=== PATIENT | male | born 1955 | race Caucasian/White ===

== ENCOUNTER 2017-08-04 00:58 | Observation (INO) | payer BC, MEDICARE, OTHER ==
[2017-08-04] VITALS (14 sets, daily range): BP systolic 109–130; BP diastolic 61–91
[~2017-08-04] VITALS: Ht 170.2 cm; Wt 77.1 kg
[~2017-08-04 00:58] MED LIST: ASPI-1471 PO; BIMA2.5D5 OP; ESOM40CA42 PO; LACT1CAP4 PO; LISI5TAB25 PO; LUTE20CA11 PO; METF-420 PO; OXYC20TA99 PO; OXYC5TAB38 PO; TUMERIC PO; VENL25TA3 PO; VENL75TA12 FT
[2017-08-04] MEDS ORDERED: MIDAZOLAM 2 MG/2 ML VIAL IVP PRN (06:00)
[2017-08-04] MEDS ORDERED: NORMOSOL R SOLN(*) 1000 ML BAG 1,000 ML IV PRN (06:00)
[2017-08-04] MEDS ORDERED: LIDOCAINE/SOD BICARB 8.4% SYR ID ONE (06:00)
[2017-08-04] MEDS ORDERED: ceFAZolin(*) 2GM/D5W 50ML 50 ML IVPB ONE (06:00)
[2017-08-04] MEDS ORDERED: DEXAMETHASONE SOD 4 MG/ML VIAL ONE (10:17)
[2017-08-04] MEDS ORDERED: LIDOCAINE MPF 1% 5 ML VIAL ONE (10:17)
[2017-08-04] MEDS ORDERED: fentaNYL CITR 250 MCG/5 ML AMP ONE (10:17)
[2017-08-04] MEDS ORDERED: ROCURONIUM BROM 10 MG/ML 10 ML ONE (10:17)
[2017-08-04] MEDS ORDERED: ONDANSETRON 4 MG/2 ML VIAL ONE (10:17)
[2017-08-04] MEDS ORDERED: PROPOFOL EMUL(*) 10MG/ML 20 ML 20 ML ONE (10:17)
[2017-08-04] MEDS ORDERED: SUGAMMADEX SOD 500 MG/5 ML SDV ONE (10:18)
[2017-08-04] MEDS ORDERED: KETAMINE HCL 200 MG/20 ML MDV ONE (10:20)
[2017-08-04] MEDS ORDERED: FAMOTIDINE 20 MG/50 ML PREMIX IVPB ONE (11:15)
[2017-08-04] MEDS ORDERED: DESFLURANE 240 ML BTL INH ONE (12:52)
[2017-08-04] MEDS ORDERED: TRANEXAMIC AC 1000 MG/10ML SDV 1,000 MG in DEXTROSE 5% 50 ML BAG 50 ML IVPB ONE ×2 (13:25→13:45)
[2017-08-04] MEDS ORDERED: LABETALOL HCL 100 MG/20ML VIAL ONE ×2 (13:42→13:45)
[2017-08-04] MEDS ORDERED: fentaNYL CITR 100 MCG/2 ML AMP ONE ×2 (14:48→15:23)
[2017-08-04] MEDS ORDERED: HYDROmorphone HCL 2 MG/ML SDV ONE (15:01)
[2017-08-04] MEDS ORDERED: ACETAMINOPHEN(*)1000 MG/100 ML 100 ML IVPB ONE (15:12)
--- NOTE | 2017-08-04 15:59 | RADIOLOGY IMAGING REPORT ---
FACILITY: [facility] [place] PATIENT NAME: Vick Traore : 1955 MR: [id number] V: [id number] EXAM DATE: ORDERING PHYSICIAN: BREANNE OLSON TECHNOLOGIST: Location: [facility] Patient: Vick Traore : 1955 Visit/Account:[id number] Date of Sevice: 08/04/2017 Exam type: LUMBAR SPINE 1 VIEW History: LUMBAR DISC HERNIATION, L2-L5 Comparison: Lumbar MRI June 23, 2017. Findings: A single cross table lateral prone view of the lumbar spine was submitted demonstrating metallic prob e projecting over the posterior spinous process of L3. Sponge marker also projects over this posteri or spinous process on this intraoperative study IMPRESSION: 1. As above Report Dictated By: Therese Gaytan MD at 08/04/2017 3:54 PM Report E-Signed By: Therese Gaytan MD at 08/04/2017 3:55 PM WSN:[email or web address]
--- NOTE | 2017-08-04 16:22 | Hospitalist Progress Note ---
Subjective Progress Notes Subjective Patient seen post-op. Reviewed PMHx (type 2 DM, SEUN, depression, glaucoma, GERD ) and medications. At present he reports some incisional pain. He denies any CP/ SOB/N/V/PORTER. Physical Exam Vital Signs Date Time Temp Pulse Resp B/P (MAP) Pulse Ox O2 Delivery O2 Flow Rate FiO2 08/04/17 16:00 98.4 76 18 109/71 (84) 96 Nasal Cannula 2.0 Intake and Output 08/05/17 07:00 Intake Total 2000 ml Balance 2000 ml Intake IV Total 2000 ml General Appearance: Alert, Awake Cardiovascular: Regular Rate and Rhythm Respiratory: Clear to Auscultation GI: Soft and Non-Tender Assessment and Plan Problems: (1) Type 2 diabetes mellitus Status: Chronic Assessment & Plan: Will resume ADA diet, metformin, watch glucoses and use SSI as needed. (2) SEUN on CPAP Status: Chronic Assessment & Plan: Will continue CPAP and use his machine. (3) Depression Status: Chronic Assessment & Plan: Continue Effexor. (4) GERD (gastroesophageal reflux disease) Status: Chronic Assessment & Plan: Continue PPI therapy. (5) Glaucoma Status: Chronic Assessment & Plan: Continue Lumigan. ENEDINA CHAUDHARY MD Aug 04, 2017 16:22
[2017-08-04] MEDS: INSULIN HUM LISPRO 100 UN/ML 3 ML VIAL SUBQ PRN ×2 (17:44→20:47)
[2017-08-04] MEDS ORDERED: oxyCODONE HCL 5 MG CAP PO PRN (19:25)
[2017-08-04] MEDS ORDERED: ACETAMINOPHEN 500 MG TAB PO PRN (19:25)
[2017-08-04] MEDS ORDERED: MAGNESIUM HYDROXIDE* 30ML UDCP PO PRN (19:25)
[2017-08-04] MEDS ORDERED: ONDANSETRON 4 MG/2 ML VIAL IVP PRN (19:25)
[2017-08-04] MEDS ORDERED: HYDROmorphone HCL 2 MG/ML SDV IVP PRN (19:25)
[2017-08-04] MEDS ORDERED: BENZOCAINE/MENTHOL 1 EACH LOZG PO PRN (19:25)
[2017-08-04] MEDS ORDERED: ACETAMINOPHEN(*)1000 MG/100 ML 100 ML IVPB PRN (19:25)
[2017-08-04] MEDS ORDERED: LR(*) 1000 ML BAG 1,000 ML IV PRN (19:25)
[2017-08-04] MEDS ORDERED: diphenhydrAMINE 25 MG CAP PO PRN (19:25)
[2017-08-04] MEDS ORDERED: DIAZEPAM 5 MG TAB PO PRN (19:25)
[2017-08-04] MEDS ORDERED: FLUSH 10 ML SYR IVP PRN (19:25)
[2017-08-04] MEDS ORDERED: BISACODYL 10 MG SUPP PR PRN (19:25)
[2017-08-04] MEDS: APAP/HYDROCODONE 325/5 TAB PO PRN (19:35)
[2017-08-04] MEDS: VENLAFAXINE REG 75 MG TAB PO SCH (20:36)
[2017-08-04] MEDS: metFORMIN HCL XR 500 MG TABCR PO SCH (20:36)
[2017-08-04] MEDS: ceFAZolin(*) 2GM/D5W 50ML 50 ML IVPB SCH (20:36)
[2017-08-04] MEDS: DOCUSATE SODIUM 100 MG CAP PO SCH (20:38)
[2017-08-04] MEDS ORDERED: BIMATOPROST 2.5 ML BTL 2.5 ML BTL OU SCH (21:00)
[2017-08-05 02:06] VITALS: BP 122/63
[2017-08-05] MEDS: ceFAZolin(*) 2GM/D5W 50ML 50 ML IVPB SCH (04:41)
[2017-08-05] MEDS: APAP/HYDROCODONE 325/5 TAB PO PRN ×2 (04:42→09:02)
[2017-08-05 07:37] VITALS: BP 126/65
--- NOTE | 2017-08-05 08:13 | Hospitalist Progress Note ---
Subjective Progress Notes Subjective He has no complaints this morning. He states he is ready to go home. Patient Complains of: Cardiovascular: No: Chest Pain Respiratory: No: Shortness of Breath Physical Exam Vital Signs Date Time Temp Pulse Resp B/P (MAP) Pulse Ox O2 Delivery O2 Flow Rate FiO2 08/05/17 07:37 99.1 79 16 126/65 (85) 91 Room Air 08/05/17 02:06 0.5 General Appearance: Alert, Awake, No Acute Distress, Afebrile Neuro: No Gross deficits Cardiovascular: Regular Rate and Rhythm Respiratory: No Respiratory Distress, Clear to Auscultation Extremities: No Edema Psych: Alert & Oriented X3, Appropriate Mood & Affect Assessment and Plan Problems: (1) Type 2 diabetes mellitus Status: Chronic Assessment & Plan: He is on chronic treatment with Metformin. (2) SEUN on CPAP Status: Chronic Assessment & Plan: He is on chronic treatment with CPAP. (3) Depression Status: Chronic Assessment & Plan: Continue Effexor. (4) GERD (gastroesophageal reflux disease) Status: Chronic Assessment & Plan: Continue PPI therapy. (5) Glaucoma Status: Chronic Assessment & Plan: Continue Lumigan. Exam Sepsis Risk: No Definite Risk MAHSA YOUNG DIRECTOR ONLINE MARKETING August 05, 2017 08:13
[2017-08-05] MEDS ORDERED: HYDR-385 PO (08:18)
[2017-08-05] MEDS ORDERED: DIA5 PO (08:18)
[2017-08-05] MEDS ORDERED: DOCU240C84 PO (08:19)
[2017-08-05] MEDS: metFORMIN HCL XR 500 MG TABCR PO SCH (08:24)
[2017-08-05] MEDS: DOCUSATE SODIUM 100 MG CAP PO SCH (08:24)
[2017-08-05] MEDS: VENLAFAXINE REG 75 MG TAB PO SCH (08:25)
[2017-08-05] MEDS ORDERED: PANTOPRAZOLE SOD 40 MG TABEC PO SCH (09:00)
[2017-08-05] MEDS ORDERED: LISINOPRIL 5 MG TAB PO SCH (09:00)
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
== END 2017-08-05 08:20 | disposition home or self-care (01) ==
LOC: OR 00:58 → MED 16:00
PROVIDERS: ADMIT Orthopaedic Surgery; ATTEND Orthopaedic Surgery
DX: M48.062 Spinal stenosis, lumbar region with neurogenic claudication (principal); E11.9 Type 2 diabetes mellitus without complications
CPT/HCPCS: 36415; 36416; 63030; 63035; 72020; 82948; 86850; 86900; 86901; 96372; 97161; A9270; G0378; J0131; J1100; J1170; J1815; J2001; J2405; J2704; J3010; J3490; J7060; J0690